=== PATIENT | female | born 1995 | race Caucasian/White ===

== ENCOUNTER 2018-12-02 13:07 | Inpatient (IN) | payer OTHER ==
[~2018-12-02] VITALS: Ht 172.7 cm; Wt 65.8 kg
[2018-12-02] MEDS ORDERED: PRENATAL TABLE1 EAC2 PO (14:31)
[2018-12-02] MEDS ORDERED: IRON325 MG PO (14:32)
== END 2018-12-04 14:24 | disposition home or self-care (01) | DRG 768 ==
LOC: LDR 13:07 → OB/GYN 17:43
PROVIDERS: ADMIT Obstetrics & Gynecology
PROC: 10E0XZZ Delivery of Products of Conception, External Approach (ICD-10-PCS; principal; 2018-12-02)
PROC: 0DQR0ZZ Repair Anal Sphincter, Open Approach (ICD-10-PCS; 2018-12-02)
PROC: 3E033VJ Introduction of Other Hormone into Peripheral Vein, Percutaneous Approach (ICD-10-PCS; 2018-12-02)
PROC: 10907ZC Drainage of Amniotic Fluid, Therapeutic from Products of Conception, Via Natural or Artificial Opening (ICD-10-PCS; 2018-12-02)
PROC: 4A1HXCZ Monitoring of Products of Conception, Cardiac Rate, External Approach (ICD-10-PCS; 2018-12-02)
DX: O70.21 Third degree perineal laceration during delivery, IIIa (principal); Z37.0 Single live birth; Z3A.37 37 weeks gestation of pregnancy; Z22.330 Carrier of Group B streptococcus